=== PATIENT | female | born 1955 | race Caucasian/White ===

== ENCOUNTER 2017-05-19 14:46 | Inpatient (IN) | payer OTHER ==
[~2017-05-19] VITALS: Ht 167.6 cm; Wt 62.1 kg
[~2017-05-19 14:46] MED LIST: ACETAMINOPHEN325 M1 PO; AMBEREN PO; AMBIEN 5 MG TABL5 M1 PO; ASPIRIN EC325 M1 PO; ASPIRIN325 PO; ATIVAN0.5 MG PO; BENADRYL25 MG PO; BISACODYL SUPP10 MG RE; CALCIUM 500 +1 EAC5 PO; CALCIUM 600 +1 EAC1 PO; CALCIUM OYSTER500 MG PO; CEFTAZIDIME IVPB; CHANTIX1 MG PO; COLACE 100 MG100 MG PO; COLACE100 MG PO; DOXYCYCLINE 10100 M1 PO; DUONEB 2.5-0.5 M3 ML INH; FLEET ENEMA118 ML RECTAL; GABAPENTIN; GARLIC OIL1 EAC1 PO; HYDROCODON-ACE1 EAC7 PO; IBUPROFEN 200200 M1 PO; LEVOTHYROXINE0.05 MG PO; LORTAB 10-3251 EACH PO; LOVENOX SQ; LYRICA100 MG PO; MAGOX 400400 MG PO; MI ACID LIQUID355 ML PO; MOM PO; MULTI FOR HER1 EACH; MULTIVITAMINS PO; NEURONTIN 300300 M1 PO; NEURONTIN 300M300 M2 PO; NEURONTIN600 MG PO; NICODERM CQ1 EAC1 TRANSDERM; NICOTINE TRANSD14 M1 TD; NYSTATIN 1100000 U/M PO; OXYCODON-ACETA1 EAC1 PO; OXYCODONE; PAXIL 20 MG TAB20 MG PO; PAXIL20 MG PO; PERCOCET 5-3251 EACH PO; PERCOCET 7.5-31 EACH PO; POTASSIUM20 PO; PREDNISONE 10 M10 MG PO; SPIRIVA INH; TRAMADOL 50 MG50 MG PO; TYLENOL325 MG PO; VANCOMYCIN HCL 11 G2 IVPB; VITAMIN B-12100 MCG PO; VITAMIN B-625 MG PO; VITAMIN D1000 UNI1 PO; VITAMINC500 PO; WELLBUTRIN SR150 MG PO; XIIDRA1 EACH OP
[2017-05-19 17:23] VITALS: BP 137/59
--- NOTE | 2017-05-19 18:01 | NUR ---
PT ADMITTED TO ROOM [address] RIVAS OFFICE AT APPROXIMATELY 1725 VIA WHEELCHAIR WITH AT BEDSIDE. PT ORIENTED TO ROOM AND CALL LIGHT. ADMISSION ASSESSMENT AND HISTORY COMPLETED. REFER TO CHARTING. PHARMACY ENTERED. TO BRING LIST OF HOME MEDICATIONS TO UPDATE RECONCILED MEDICATIONS. PT RECEIVED LOVENOX 60MG SUBQ, MORPHINE UNKNOWN DOSE IVP, AND NORMAL SALINE 1,000ML AT CLINIC THIS AFTERNOON PER PT AND PT . PT WAS DIAGNOSED WITH LUNG CANCER IN AND HAS BEEN RECEIVING CHEMO AND RADIATION. FOR THE LAST WEEK AND A HALF PT HAS BEEN HAVING CHEST PAIN THAT IS RELIEVED BY MEDICATIONS AND EXACERBATED BY COUGHING AND MOVEMENT. FENTANYL PATCH NOTED TO LEFT ARM PLACED ON 05/18. PT LIVES AT HOME WITH . PT A&0X4. COMPLAINS OF PAIN TO CHEST AND BACK. DR LOCKETT NOTIFIED. AWAITING ORDERS AT THIS TIME. PT TRACING SR ON THE MANDREL PRESS HAND. ON RA SAT 99%. DENIES ANY SHORTNESS OF BREATH. WHEEZES NOTED. PT STATES SHE HASNT HAD A BOWEL MOVEMENT IN 5 DAYS. RIGHT CHEST JOSH CATH IN PLACE ACCESSED BY CLINIC THIS AFTERNOON. PT UP SBA TO BATHROOM. STATES SHE FELL IN FEBRUARY. RADIATION CLARKE NOTED TO BACK AND BREASTS. VSS. PT REPOSITIONS SELF IN BED WITH REMINDERS. HOURLY ROUNDING OBSERVED. BED IN LOW POSITION. BED ALARM IN PLACE. FALL PRECAUTIONS IN PLACE. CALL LIGHT WITHIN REACH. WILL CONTINUE PLAN OF CARE.
[2017-05-19 20:00] VITALS: BP 136/67
[2017-05-20] VITALS (7 sets, daily range): BP systolic 110–145; BP diastolic 51–72
--- NOTE | 2017-05-20 01:03 | NUR ---
MOVED FROM ROOM 227 TO 231, SO COULD SPEND NIGHT. CONT. IN SR ON THE HEART MONITOR. O2 2 LITERS. MORPHINE NEEDED FOR PAIN. NS 100 HOUR VIA PORT-A-CATH. SLEEPING NOW. BED IN LOW POSITION, CALL LIGHT WITHIN REACH. NO SIGN OF DISTRESS. CONT. WITH CURRENT PLAN OF CARE AT THIS TIME.
[2017-05-20 04:35] LABS: CALCIUM 8.1 mg/dL (8.5-10.1); MAGNESIUM 1.5 mg/dL (1.8-2.4); POTASSIUM 3.1 mmol/L (3.5-5.1)
[2017-05-20 04:59] LABS: MCH 41.6 pg (26.0-34.0)
[2017-05-20 05:01] LABS: MCV 118.8 fL (80.0-100.0); MPV 8.5 fl. (7.2-11.1); RBC 1.3 mil/uL (4.20-5.00); RDW-CV 15.9 % (10.5-14.5)
[2017-05-20 05:08] LABS: WBC 0.6 thou/uL (4.0-11.0)
[2017-05-20 05:09] LABS: HEMATOCRIT 15.4 % (37.0-47.0); HEMOGLOBIN 5.4 gm/dL (12.0-15.0)
--- NOTE | 2017-05-20 05:16 | NUR ---
COMMUNITY SERVICE MANAGER LAB SHOWED HGB 5.4, CALL PLACED WITH PUBLIC HEALTH SANITARIAN PHYSICIAN.
--- NOTE | 2017-05-20 06:44 | NUR ---
RETURN CALL FROM PHYSICIAN, TYPE AND CROSS 1 UNIT PRBC, RECHECK HGB AFTER 1 UNIT. PATIENT IS ON RA AT 97 PERCENT SATURATION, DENIES COMPLAINS OF SOA, CONT. TO MONITOR. BLOOD SENT TO BLOOD BANK FOR TYPE AND CROSS.
--- NOTE | 2017-05-20 19:00 | NUR ---
RECEIVED REPORT. ASSUMED CARE OF PT AT 0730. VSS. O2 SAT >90% ON 1.5L PER NC PRN. CONTINUOUS O2 MONITORING IN PLACE. CARDIAC MONITOIR IN PLACE TRACING SR. AM ASSESSMENT AND VITALS COMPLETED CHARTED. RIGHT PORTACATH PATENT AND INFUSING. PT HEMOGLOBIN CRITICALLY LOW - TRANSFUSED 1 UNIT OF BLOOD, PT HAD NO ADVERSE REACTION. PT TEARFUL AND ANXIOUS ABOUT RECEIVING BLOOD, PROVIDED REASSURANCE AND EDUCATION. PT RECEPTIVE. CBC ORDERED FOR TOMORROW MORNING INSTEAD OF 2-4HRS POST TRANSFUSION PER DR LOCKETT. PT HAS REPORTED CHEST AND BACK PAIN R/T CHEMO AND RADITION THROUGHOUT THE SHIFT THAT HAS BEEN MANAGED WITH IV, PO, AND TOPICAL PO PAIN MEDICATIONS. SEE EMAR FOR ADMINISTRATION AND REASSESSMENTS. PT EATING AND DRINKING WITHOUT ISSUE. PT UP WITH STANDBY ASSISSTANCE TO THE BATHROOM. HAS BEEN AT BEDSIDE THROGHOUT THE SHIFT. PT REPOSITIONS SELF IN THE BED. LOW FALL RISK PRECAUTIONS IN PLACE. CALL LIGHT IS WITHIN REACH. HOURLY ROUNDING PERFORMED.
[2017-05-21] VITALS (7 sets, daily range): BP systolic 133–156; BP diastolic 56–76
--- NOTE | 2017-05-21 04:04 | NUR ---
PT ALERT ORIENTED. MORPHINE ORDER 4MG Q 4 HRS. ONE TIME ORDER FOR ADDITIONAL DOSE AT 2140 OBTAINED. HYDROCODONE ALSO GIVEN. TELEMETRY SHOWS SR. ON CONTINUOUS O2 SAT MONITOR. O2 SAT 89% O2 AT 1 LITER NC APPLYED. PT TEARFUL AT TIMES. AT BEDSIDE. WILL CONTINUE TO MONITOR.
[2017-05-21 05:32] LABS: MCH 40.3 pg (26.0-34.0); MCHC 35.5 g/dL (28.0-37.0); MPV 9.3 fl. (7.2-11.1); RBC 1.53 mil/uL (4.20-5.00); RDW-CV 18.5 % (10.5-14.5)
[2017-05-21 05:35] LABS: MCV 113.4 fL (80.0-100.0)
[2017-05-21 05:37] LABS: HEMATOCRIT 17.4 % (37.0-47.0); HEMOGLOBIN 6.2 gm/dL (12.0-15.0); WBC 0.9 thou/uL (4.0-11.0)
[2017-05-21 05:44] LABS: CALCIUM 8.9 mg/dL (8.5-10.1); POTASSIUM 3.6 mmol/L (3.5-5.1)
--- NOTE | 2017-05-21 19:00 | NUR ---
RECEIVED REPROT. ASSUMED CARE OF PT AT 0730. PT A&OX4. VSS. O2 SAT >90% ON ROOM AIR, WITH OCCASIONAL USE OF 1.5L PER NC NEEDED. CONTINUOUS O2 MONITORING IN PLACE. CARDIAC MONITORING IN PLACE TRACING SR. AM ASSESSMENT AND VITALS COMPLETED CHARTED. PT RECEIVED UNIT 2 OF BLOOD THIS AM WITHOUT ADVERSE REACTION. CBC ORDERED FOR TOMORROW MORNING. PT HAS REPORTED PAIN IN RIGHT CHEST AND BACK AREAS, WELL INTERMITTENT PAIN WITH SWALLOWING. PAIN HAS BEEN MANAGED WITH PO, TOPICAL AND IV PAIN MEDICATION. SEE EMAR FOR DOCUMENTATION AND REASSESSMENT. PT COMPLETED VQ SCAN. GI AND ID CONSULTS ORDERED. PT HAS HAD POOR APPETITE THROUGHOUT THE SHIFT. EDUCATED PT ON IMPORTANCE OF EATING WELL AND STAYING HYDRATED. EDUCATED TO DRINK LESS POP AND MORE WATER. PT COMMUNICATES UNDERSTANDING. PT UP AD JOSÉ MIGUEL TO THE BATHROOM NEEDED, WITH SOME ASSISTANCE FROM . AT BEDSIDE THROUGHOUT THE SHIFT. PT REPOSITIONING SELF IN THE BED, HOURLY ROUNDING PERFORMED. CALL LIGHT IS WITHIN REACH. LOW FALL RISK PRECAUTIONSIN PLACE. WILL CONTINUE TO MONITOR FOR DURATION OF SHIFT.
[2017-05-22 00:49] VITALS: BP 125/60
--- NOTE | 2017-05-22 03:54 | NUR ---
ASSUMED PT CARE AT 1930, PT IS A&OX4, PT IS TRACING NSR ON THE MONITOR, ON RA SATTING MID TO HIGH 90'S. PT IS ON A CONT PULSE OX AT THIS TIME. PT C/O PAIN THROUGHOUT THE SHIFT, PT TOOK TRAMADOL AND STATES THAT HELPED HER PAIN THE BEST, PT WOULD LIKE TO GO HOME WITH A SCRIPT FOR IT. IVF INFUSING PER MAR. PT IS UP AD JOSÉ MIGUEL AND STABLE ON HER FEET. BED IN LOW POSITION, CALL LIGHT IN REACH. HOURLY ROUNDING COMPLETED FOR PT SAFETY.
[2017-05-22 04:11] VITALS: BP 130/66
[2017-05-22 05:57] LABS: MCH 38.3 pg (26.0-34.0); MCV 109.2 fL (80.0-100.0); MPV 9.7 fl. (7.2-11.1); RBC 2.2 mil/uL (4.20-5.00); RDW-CV 21.4 % (10.5-14.5)
[2017-05-22 05:59] LABS: HEMOGLOBIN 8.4 gm/dL (12.0-15.0)
[2017-05-22 06:00] LABS: WBC 1.1 thou/uL (4.0-11.0)
[2017-05-22 08:00] VITALS: BP 134/75
--- NOTE | 2017-05-22 10:53 | NUR ---
RECEIVED REPORT. ASSUMED CARE OF PT AT 0730. PT A&OX4. VSS. O2 SAT 100% ON ROOM AIR. CONTINUOUS O2 MONITORING IN PLACE. 1.5L PER NC USED PRN. RADIATOR SPECIALIST IN PLACE TRACING SR. AM ASSESSMENT AND VITALS COMPLETED CHARTED. PERIPHERAL IV SALINE LOCKED. RIGHT PORT PATENT AND INFUSING. HEMOGLOBIN 8.4 THIS AM. PT APPEARS TO HAVE MORE ENERGY AND IS LESS FATIGUED. PT COMPLAINING OF ESOPHAGEAL AND CHEST PAIN PRIMARILY WITH SWALLOWING. SEE EMAR FOR ADMINISTRATION AND REASSESSMENT OF PAIN MEDS. PT EXHIBITING POOR APPETITE. EDUCATION GIVEN ABOUT EATING SOFT FOODS AND DRINKING WATER - PT CONTINUES TO DRINK MOSTLY POP. PT PARTIALLY RECEPTIVE TO TEACHING. AT BEDSIDE. PT REPORTS EPISODE OF LOOSE STOOL THIS AM. PT UP AD JOSÉ MIGUEL IN ROOM. LOW FALL RISK PRECAUTIONS IN PLACE. CALL LIGHT IS WITHIN REACH. WILL CONTINUE TO MONITOR.
[2017-05-22 11:37] VITALS: BP 137/71
[2017-05-22 15:52] VITALS: BP 128/68
--- NOTE | 2017-05-22 19:44 | NUR ---
VSS. O2 SAT REMAINS >90% ON ROOM AIR. CONTINUOUS O2 MONITORING IN PLACE. DELICATESSEN GOODS STOCK CLERK REMAINS IN PLACE WITH NO CHANGES THIS SHFIT. PERIPHERAL IV SALINE LOCKED. RIGHT PORT INFUSING. PT SEEN BY ID. PT PROGRESSING TOWARDS GOALS. PT CONTINUES TO REPORT PAIN IN ESOPHAGUS AND CHEST MOSTLY WITH SWALLOWING THAT HAS BEEN MANAGED WITH PO, IV, AND TOPICAL PAIN MEDICATION. SEE EMAR FOR ADMINISTRATION AND REASSESSMENT OF MEDS. PT SHOWING INCREASED APPETITE BY END OF SHIFT. PT CONTINUES TO DRINK MORE POP THAN WATER, DESPITE EDUCATION ABOUT NEEDING TO DRINK WATER MORE OFTEN. PT HAD LOOSE STOOLS X2 THIS SHIFT. AT BEDSIDE. LOW FALL RISK PRECAUTIONS IN PLACE. CALL LIGHT IS WITHIN REACH. HOURLY ROUNDING PERFORMED.
[2017-05-22 20:00] VITALS: BP 140/77
[2017-05-23 00:20] VITALS: BP 125/70
[2017-05-23 04:19] VITALS: BP 130/48
--- NOTE | 2017-05-23 05:02 | NUR ---
ASSUMED PT CARE AT 1930, PT IS A&OX4, PT IS TRACING NSR ON THE MONITOR, ON RA SATTING MID TO HIGH 90'S. PT HAS IVF INFUSING PER MAR. PT C/O P[AIN THROUGHOUT THE SHIFT, PRN PAIN MEDICATIONS GIVEN WITH RELIEF. PT IS UP AD JOSÉ MIGUEL IN HER ROOM, STABLE ON HER FEET. BED IN LOW POSITION, CALL LIGHT IN REACH, BED ALARM ON, YELLOW ARM BAND AND SOCKS IN PLACE. HOURLY ROUNDING COMPLETED FOR PT SAFETY.
[2017-05-23 08:00] VITALS: BP 141/79
--- NOTE | 2017-05-23 08:44 | CON ---
[address] [address] CONSULTATION Name: MAGEN MONK Room: [address] IN .R.#: [id number] Admission: 05/19/17 Attend Phys: Amy Garcia Discharge: Date of : 55 Report #: [id number] THIS REPORT FOR: //name// CC: Ramon Stanley DATE OF SERVICE: 05/22/2017 ATTENDING PHYSICIAN: Dr. Stanley. REASON FOR EVALUATION: Neutropenia and esophagitis, the patient is undergoing chemotherapy for squamous cell carcinoma of the lung. HISTORY OF PRESENT ILLNESS: Chart reviewed, patient examined. This is a 61-year-old with diagnosis of a non-small carcinoma of the lung, has a previous history of rectal carcinoma as well, was admitted with difficulty swallowing and significant odynophagia, perhaps some low grade temperature elevations. She is undergoing chemotherapy as well as radiation primarily to the left side of her chest. She notes the pain more oriented to the right side. She was found to have marked leukopenia, has a total count of 600, it is up to 1.1, at least mildly encephalopathic. Denies significant pulmonary-related complaints. She does have an indwelling Abbasi. As noted above, she has poor p.o. intake. ALLERGIES: LISTED TO PENICILLIN G, WHICH CAUSES SWELLING AND SHELLFISH. MEDICATIONS: Include pantoprazole, ondansetron, oxycodone, cholecalciferol, paroxetine, levothyroxine, gabapentin, bupropion, tramadol. PAST MEDICAL HISTORY: As noted above, rectal carcinoma diagnosed in 2010 with bone resection, ileostomy, reversal in 2011 of the ileostomy, lung cancer. SOCIAL HISTORY: Smokes 1/4 pack a day for 40 years. Fairly regular ethanol. FAMILY HISTORY: Noncontributory. REVIEW OF SYSTEMS: As above. PHYSICAL EXAMINATION: GENERAL: She appears chronically ill, undernourished. She is pleasant, cooperative, is mildly encephalopathic. VITAL SIGNS: Temperature 97.5, pulse 87, respirations 17, blood pressure 137/71. SKIN: Warm. NECK: Supple. LUNGS: Diminished breath sounds, few scattered crackles, somewhat diminished, [place] [address] CONSULTATION Name: MAGEN MONK Room: [address] IN [facility]#: [id number] Admission: 05/19/17 Attend Phys: Amy Garcia Discharge: Date of : 55 Report #: [id number] ABDOMEN: Soft, nontender. EXTREMITIES: No cyanosis. GENITOURINARY AND RECTAL: Deferred. LABORATORY DATA: CBC: White count of 1.1, H and H 8.4 and 24, platelets of 70. Chest x-ray, increased bibasilar infiltrates. Electrolytes: Sodium 138, potassium 3.6, chloride 103, bicarbonate is 26, BUN and creatinine 10 and 1.0, estimated GFR 56. WBC initially was 0.6. ASSESSMENT: Leukopenia. The patient undergoing chemotherapy, I think it is reasonable to go ahead and initiate prophylaxis as the patient will be at risk for infectious complications including pneumonitis. She may well have esophagitis. We will go ahead and add antifungal. She does have an indwelling port, does not seem to be a concern at this point in terms of infection. We may go ahead and do a urinalysis and get some blood cultures as well. Thank you. We will follow. <ELECTRONICALLY SIGNED> By: Von Mancini MD 05/23/17 0844 [id number] Mancini MD /nt
--- NOTE | 2017-05-23 10:41 | NUR ---
ASSUMED CARE OF PATIENT THIS AM AT 0730. PATIENT IS ALERT AND ORIENTED X 4 SOMEWHAT FORGETFUL. SHE C/O CONTINUED PAIN WITH SWALLOWING AND CHEST DISCOMFORT. PATIENT MEDICATED FOR PAIN AND HAS BEEN STARTED ON AN ANTIFUNGAL. TELE SHOWS SR. PATIENT IS SOMEWHAT ANXIOUS ABOUT THE LENGHT OF THE HOSPITAL STAY. PATIENT EDUCATED ON PROCEDURES AND MEDICATIONS. TELE SHOWS SR. WILL CONTINUE TO MONITOR PATIENT COMFORT.
[2017-05-23 12:29] VITALS: BP 137/69
[2017-05-23 13:06] LABS: HEMATOCRIT 21.3 % (37.0-47.0); HEMOGLOBIN 7.4 gm/dL (12.0-15.0); MCH 38.4 pg (26.0-34.0); NUCLEATED RBCS 1 /100WBC; PLATELET COUNT* 72 thou/uL (150-400)
[2017-05-23 13:08] LABS: MCHC 34.8 g/dL (28.0-37.0); MCV 110.4 fL (80.0-100.0); MPV 8.7 fl. (7.2-11.1); RBC 1.93 mil/uL (4.20-5.00); RDW-CV 21.3 % (10.5-14.5)
[2017-05-23 13:12] LABS: WBC 0.8 thou/uL (4.0-11.0)
[2017-05-23 13:30] LABS: ABSOLUTE EOSINOPHILS 0.1 thou/uL (0.0-0.7); ABSOLUTE LYMPHOCYTES 0.1 thou/uL (0.8-5.3); ABSOLUTE MONOCYTES 0.2 thou/uL (0.0-1.2); ABSOLUTE NEUTROPHILS 0.4 thou/uL (1.6-8.1)
[2017-05-23 13:31] LABS: ANISOCYTOSIS 2+; MACROCYTES 2+; PLATELET ESTIMATE DECREASED
--- NOTE | 2017-05-23 14:55 | NUR ---
MET WITH PT AND SPOUSE TO DISCUSS HOME SITUATION/DC PLANNING. PT LIVES WITH SPOUSE. SHE IS FAIRLY INDEPENDENT WITH ADLS, USES WALKER FOR STABILITY AT THE TOP OF THEIR STAIRS AND HAS A BSC SHE USES OVER THE TOILET TO MAKE IT 'TALLER.' PT HAS HAD HH IN THE PAST AND RENTED A HOSPITAL BED WHEN SHE HAD A FX LEG. SHE STATES SHE HAS BEEN DOING FAIRLY WELL AT HOME LATELY. JUST FINISHED CHEMO AND XRT AND IS TO HAVE A PET SCAN ON 05/30 TO DETERMINE MORE TREATMENT. CLEMENTEIES MELIZA AT THIS TIME. HAS HAD HH IN THE PAST WITH [facility]. SPOUSE VERY SUPPORTIVE. WILL FOLLOW
[2017-05-23 16:45] VITALS: BP 130/73
[2017-05-23 20:00] VITALS: BP 127/68
[2017-05-24] VITALS: BP 142/70
--- NOTE | 2017-05-24 02:45 | NUR ---
RESTIN IN BED. DENIES COMPLAINTS. AT BEDSIDE. CONT. TO MONITOR LABS. DENIES SOA, DIFFICULTIES BREATHING. UP WITH SBA, NO SIGN OF DISTRESS, BED IN LOW POSITION. CALL LIGHT WITHIN REACH. CONT. WITH CURRENT PLAN OF CARE AT THIS TIME.
[2017-05-24 05:09] LABS: HEMATOCRIT 20.5 % (37.0-47.0); MCH 38.3 pg (26.0-34.0); MCHC 34.4 g/dL (28.0-37.0); MCV 111.6 fL (80.0-100.0); PLATELET COUNT* 72 thou/uL (150-400); RBC 1.84 mil/uL (4.20-5.00); RDW-CV 21.9 % (10.5-14.5)
--- NOTE | 2017-05-24 05:25 | NUR ---
PATIENT IS ON NEUTROPENIC PRECAUTIONS DUE TO WBC'S .6, 1.8 THIS AM.
[2017-05-24 05:26] LABS: WBC 1.8 thou/uL (4.0-11.0)
[2017-05-24 05:30] LABS: CALCIUM 8.9 mg/dL (8.5-10.1); CREATININE 1.1 mg/dL (0.6-1.3); POTASSIUM 4.6 mmol/L (3.5-5.1)
[2017-05-24 11:24] VITALS: BP 155/75
[2017-05-24 12:00] VITALS: BP 138/52
[2017-05-24 12:04] LABS: URINE BILIRUBIN NEGATIVE (Negative); URINE BLOOD NEGATIVE (Negative); URINE CLARITY CLEAR; URINE COLOR YELLOW; URINE GLUCOSE-RANDOM NEGATIVE (Negative); URINE KETONES NEGATIVE (Negative); URINE LEUKOCYTES-REFLEX TRACE (Negative); URINE NITRITE-REFLEX NEGATIVE (Negative); URINE PROTEIN NEGATIVE (Negative); URINE SPECIFIC GRAVITY 1.015 (1.005-1.030); URINE UROBILINOGEN 0.2 E.U./dl (0.2-1.0)
[2017-05-24 12:16] LABS: SQUAMOUS 0-3 Few /LPF (0-3)
[2017-05-24 12:17] LABS: BACTERIA-REFLEX 1-9 Few /HPF (None Seen); CASTS None Seen /LPF (None Seen); CRYSTALS None Seen /LPF (None Seen); MUCUS 0-3 Light strn/LPF (None Seen); URINE RBC 0-2 Rare /HPF (0-2); URINE WBC-REFLEX 0-5 Rare /HPF (0-5)
[2017-05-24 13:11] LABS: ABSOLUTE EOSINOPHILS 0.1 thou/uL (0.0-0.7); ABSOLUTE LYMPHOCYTES 0.4 thou/uL (0.8-5.3); ABSOLUTE MONOCYTES 0.3 thou/uL (0.0-1.2); MACROCYTES 2+; PLATELET ESTIMATE DECREASED; POLYCHROMASIA 1+
[2017-05-24 13:12] LABS: ANISOCYTOSIS 2+; HYPOCHROMASIA 1+; POIKILOCYTOSIS 1+
[2017-05-24 14:58] LABS: % SATURATION 43 % (20-39); IRON 80 ug/dL (50-175)
[2017-05-24 16:57] VITALS: BP 144/68
--- NOTE | 2017-05-24 18:00 | NUR ---
RECEIVED REPORT FROM NOC RN. PT SITTING IN BED WITH BREAKFAST TRAY, PLEASANT, IN NO APPARENT DISTRESS. CALM, COOPERATIVE. ABLE TO COMMUNICATE NEEDS TO STAFF. VS WNL. M/S STATUS. ASSESSMENT COMPLETE. MEDS PER JUL. PRN OXYCODONE GIVEN FOR PAIN PER JUL. CONTACTED GI PLANT SCIENCE PROFESSOR TO INFORM THAT PT'S WBC >1 A POTENTIAL EGD WAS PLAN FOR TODAY. GI PLANT SCIENCE PROFESSOR TO ROOM FOR ASSESSMENT, STATES EGD MAY BE PERFORMED TOMORROW IF PT'S WBC LAB IS >2-2.5. PT'S TO ROOM TO VISIT THIS AFTERNOON.
[2017-05-24 20:00] VITALS: BP 147/68
[2017-05-25 00:07] VITALS: BP 147/67
--- NOTE | 2017-05-25 01:45 | NUR ---
ALERT AND ORIENTED X 4. AT BEDSIDE. UP TO BR WITH SBA, CONT. TO MONITOR WBC'S PATIENT IS NEUTROPENIC. WBC'S 1.8. TO BE DRAWN THIS AM. PAIN MEDS PRESCRIBED. NO SIGN OF DISTRESS. CALL LIGHT WITHIN REACH. BED IN LOW POSITION. NO SIGN OF DISTRESS. CONT. WITH PLAN OF CARE.
[2017-05-25 04:06] LABS: HEMATOCRIT 22.1 % (37.0-47.0); HEMOGLOBIN 7.6 gm/dL (12.0-15.0); MCH 38.5 pg (26.0-34.0); MCHC 34.5 g/dL (28.0-37.0); MCV 111.6 fL (80.0-100.0); RBC 1.98 mil/uL (4.20-5.00); RDW-CV 21.8 % (10.5-14.5); WBC 5.2 thou/uL (4.0-11.0)
[2017-05-25 04:13] LABS: CALCIUM 8.6 mg/dL (8.5-10.1); CREATININE 1.3 mg/dL (0.6-1.3); POTASSIUM 4.6 mmol/L (3.5-5.1)
[2017-05-25 04:21] LABS: MAGNESIUM 0.9 mg/dL (1.8-2.4)
--- NOTE | 2017-05-25 07:20 | NUR ---
CHANGE OF SHIFT REPORT GIVEN ASSUMED PATIENT CARE PATIENT SEN IN BED, ASLEEP
[2017-05-25 08:00] VITALS: BP 127/71
[2017-05-25 12:20] VITALS: BP 147/72
--- NOTE | 2017-05-25 12:30 | NUR ---
CONTINUE TO FOLLOW, MET WITH PT'S SPOUSE. PT WAS SLEEPING. HAS DC ORDERS WITH LAB F/U AT PCP. SPOUSE STATES THEY HAVE SEVERAL APPTS NEXT WEEK. DENIES ANY DC NEEDS
[2017-05-25] MEDS ORDERED: DIFLUCAN200 MG PO (14:57)
[2017-05-25] MEDS ORDERED: LEVAQUIN 500 M500 M3 PO (14:58)
[2017-05-25] MEDS ORDERED: PROTONIX40 M1 PO (15:10)
[2017-05-25] MEDS ORDERED: CARAFATE 1 GM TA1 G1 PO (15:10)
[2017-05-25] MEDS ORDERED: MAGOX 400400 MG PO (15:11)
[2017-05-25] MEDS ORDERED: VENTOLIN HFA INH8 GM INH (15:13)
[2017-05-25 15:14] VITALS: BP 147/72
--- NOTE | 2017-05-25 16:30 | NUR ---
PATIENT DCD TO HOME R CHEST PORT DEACCESSED PACKED WITH HEPARIN PRIOR TO DC ALL DC INFO GIVEN, ACKNOWLEDGED, AND SIGNED COPIES GIVEN IV AND HEART MONITOR REMOVED PERSONAL BELONGINGS RETURNED PATIENT ASSISTED OUT VIA WC GOOD CONDITION TO WAITING CAR
--- NOTE | 2017-05-30 16:26 | CON ---
[address] [address] CONSULTATION Name: MAGEN MONK Room: [address] IN M.R.#: [id number] Admission: 05/19/17 Attend Phys: Amy Garcia Discharge: 05/25/17 Date of : 55 Report #: [id number] THIS REPORT FOR: //name// CC: Ramon Gonzalez DO [place] Stanley DICTATED BY: Blossom Laura [facility] DATE OF SERVICE: 05/23/2017 Please note at the time of this dictation, the patient was seen and physically examined by myself. REASON FOR CONSULTATION: Difficulty swallowing and painful swallowing. HISTORY OF PRESENT ILLNESS: This is a pleasant 61-year-old female who presented to the emergency room with having increasing issues with low blood pressure and painful and difficult in swallowing. The patient had completed radiation and chemotherapy on May 11, for her lung cancer. She has been complaining of pain with swallowing over the last several weeks, which she states that it is both with solids and liquids and it is like a stabbing pain on the right side part of her chest, right below her port, which will radiate up into her neck and into her epigastric area and also into her back. She states it has been constant from only with swallowing to being constant right now. Today upon talking with the patient, she states it has not been as bad. She has been able to eat some jello and some pudding and able to get that down along with some ice cream without too much difficulty. The patient has never had an EGD performed in the past. She did have a colonoscopy back in 2011, with Dr. Lindsey Verma that showed a polyp and it was a tubular adenoma, but has not had any repeat since that time. ALLERGIES: SHELLFISH and PENICILLIN. MEDICATIONS FROM HOME: Include Neurontin, Paxil, Wellbutrin, K-Dur, , Tylenol, ibuprofen, , tramadol, Caltrate, Colace, Synthroid and vitamin D. PAST MEDICAL HISTORY: Significant for rectal cancer in 2010, in which she had an ileostomy and that had a reversal; hypothyroidism, lung cancer and some depression. She has had fractures of her ramus of the left pubis and a closed tib-fib fracture and a pubic bone fracture as well. She has had a past history of alcohol abuse. PAST SURGICAL HISTORY: Again, she had the colon resection in December 2010, with an ileostomy, which she had reversal in 2011. She has had bilateral cataracts and neck [place] back [place] [address] [address] CONSULTATION Name: MAGEN MONK Room: [address] [place] M.R.#: [id number] Admission: 05/19/17 Attend Phys: Amy Garcia Discharge: 05/25/17 Date of : 55 Report #: [id number] FAMILY HISTORY: Negative for any GI or female cancers. SOCIAL HISTORY: She is . She still smokes a fourth a pack, but has not since the day of admission. Alcohol, a beer once a week, but past history of heavier drinking. REVIEW OF SYSTEMS: Twelve-point review of systems is essentially negative except what is mentioned in the HPI. PHYSICAL EXAMINATION: VITAL SIGNS: Temperature 36.6, pulse 86, respirations 16, and blood pressure 137/69. LABS: Hemoglobin is 7.4, hematocrit 21.3, white count is 0.8, platelets of 72. Sodium 138, potassium 3.6, chloride 103, CO2 of 26, BUN is 10, creatinine is 1, GFR is 56, and glucose is 87. IMPRESSION: 1. Dysphagia. 2. Odynophagia. 3. Severe pancytopenia. 4. Lung cancer, recently finished chemo and radiation on 05/11. 5. History of rectal cancer in 2010, last colon was done in 2011 noting a tubular adenoma. PLAN: 1. We will await hematology/oncology to see and possibly giving her some medication to increase her white count. 2. Plans for an EGD once her white count has been reversed. 3. We will start Carafate suspension to help with her symptoms until an EGD can be performed. 4. The patient will need an outpatient colon since it has been 5 years since her last colonoscopy. Thank you for allowing us to participate in this patient's care. Please do not hesitate to call with any questions in regard to this consult. I personally seen and examined the patient and reviewed labs and imaging studies. This is a 61-year-old female with history of rectal cancer who has had surgery for the same back in 2011. She has not had any colonoscopy since. She reports that she usually was a bit constipated, but recently has been having diarrhea. She also has lung cancer for which she receives chemoradiation therapy. Her last radiation was 05/11/2017. The patient reports dysphagia and odynophagia. [address] [address] CONSULTATION Name: MAGEN MONK Room: [address] [place] .R.#: [id number] Admission: 05/19/17 Attend Phys: Amy Garcia Discharge: 05/25/17 Date of : 55 Report #: [id number] Her white count is low at 800. We will put her on Carafate and PPI and consider upper endoscopy when her neutrophil count is improved. <ELECTRONICALLY SIGNED> By: Lianna Galicia MD 05/30/17 1626 [id number] Galicia MD /nt
== END 2017-05-25 16:35 | disposition home or self-care (01) | DRG 368 ==
LOC: M.2W 14:46 → M.TBA 15:44 → M.2W 16:57
PROVIDERS: Nurse Practitioner Adult Health; Specialist; ADMIT Internal Medicine
PROC: 30233N1 Transfusion of Nonautologous Red Blood Cells into Peripheral Vein, Percutaneous Approach (ICD-10-PCS; principal; 2017-05-21)
DX: B37.81 Candidal esophagitis (principal); N17.0 Acute kidney failure with tubular necrosis; E43 Unspecified severe protein-calorie malnutrition; D61.818 Other pancytopenia; C34.90 Malignant neoplasm of unspecified part of unspecified bronchus or lung; J98.11 Atelectasis; E03.9 Hypothyroidism, unspecified; F17.210 Nicotine dependence, cigarettes, uncomplicated; D72.819 Decreased white blood cell count, unspecified; F32.9 Major depressive disorder, single episode, unspecified; R13.10 Dysphagia, unspecified; G62.9 Polyneuropathy, unspecified; K08.409 Partial loss of teeth, unspecified cause, unspecified class; D64.9 Anemia, unspecified; E86.9 Volume depletion, unspecified; E83.42 Hypomagnesemia; Z98.42 Cataract extraction status, left eye; Z88.0 Allergy status to penicillin; Z91.013 Allergy to seafood; Z79.899 Other long term (current) drug therapy; Z93.2 Ileostomy status; Z90.49 Acquired absence of other specified parts of digestive tract; Z98.41 Cataract extraction status, right eye; Z85.048 Personal history of other malignant neoplasm of rectum, rectosigmoid junction, and anus; Z68.22 Body mass index [BMI] 22.0-22.9, adult